=== PATIENT | male | born 1990 | race Caucasian/White ===

== ENCOUNTER 2022-07-23 22:28 | Emergency (ER) | payer OTHER, SELFPAY ==
[2022-07-23 22:36] VITALS: BP 145/93; PULSE 124; RESP 18; TEMP 36.4; O2SAT 95; BMI 22.4
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
[2022-07-24 00:34] LABS: Ethanol < 10 mg/dL
[2022-07-24 00:38] LABS: Amphetamine Screen Urine Not Detected (Not Detect); Barbiturates, Urine Not Detected (Not Detect); Benzodiazepines Screen Urine Not Detected (Not Detect); Cannabinoid Screen Urine Not Detected (Not Detect); Cocaine Screen Urine Not Detected (Not Detect); Fentanyl, urine Not Detected (Not Detect); Opiate Screen Urine Not Detected (Not Detect); Phencyclidine Screen Urine Not Detected (Not Detect)
== END 2022-07-24 00:49 | disposition home or self-care (01) ==
PROVIDERS: Physician Assistant; Emergency Provider Internal Medicine
DX: Z04.2 Encounter for examination and observation following work accident (principal); Z79.899 Other long term (current) drug therapy
CPT/HCPCS: 36415; 80307; 82077; 99282; 99283